=== PATIENT | male | born 1980 | race Caucasian/White ===

== ENCOUNTER 2020-01-19 10:32 | Emergency (ER) | payer SELFPAY ==
[2020-01-19 10:44] VITALS: BP 154/97; PULSE 95; RESP 16; TEMP 36.3; O2SAT 100
--- NOTE | 2020-01-19 11:02 | ED.DENTAL ---
HPI - Dental/Oral General Chief complaint: Dental/Oral Stated complaint: jaw pain Time Seen by Provider: 01/19/20 11:02 Source: patient Mode of arrival: ambulatory Limitations: no limitations History of Present Illness HPI Narrative: Dami Levine is a 39 yo malw qith a hx of epilepsy who omes to express are with dental pain. Patient does not have a diet dentist and is been having problems with his last molar on the right for weeks but starting Friday it started this swell and become very painful, states the pain is about ureterogram hard for him to eat or to bite down. Is also epileptic and has not had his Dilantin XR due to lack of prescription and also expense. He has been trying to taper his medications coverage until he can get a new prescription Related Data Home Medications Medication Instructions Recorded Confirmed Dilantin 01/19/20 Allergies Allergy/AdvReac Type Severity Reaction Status Date / Time Penicillins Allergy Unknown Hives Verified 01/19/20 10:49 Bumble Bee Allergy Unknown Unknown Uncoded 01/19/20 10:49 Review of Systems Review of Systems: Narrative: CONSTITUTIONAL: Denies fever, chills, sweats. EYES: Denies visual changes, redness, discharge. ENT: Denies rhinorrhea, congestion, sore throat, otalgia. Tooth 16 and 32 redness of gum swelling of right cheek CARDIOVASCULAR: Denies chest pain, palpitations, edema. RESPIRATORY: Denies dyspnea, wheezing, cough GASTROINTESTINAL: Denies abdominal pain, nausea, vomiting, diarrhea. GENITOURINARY: Denies dysuria, hematuria, abnormal discharge SKIN: Denies rash or itching. NEUROLOGIC: Denies numbness, or focal weakness. PSYCHIATRIC: Denies anxiety or depression. Needs refill on his Dilaudid prescription COUNTS INCLUDE 234 BEDS AT THE [facility] Past Medical History Medical History Epilepsy Family History Family History Sibling Patient's sister is in good health Father Family history of chronic obstructive pulmonary disease Patient's father is Other Hypertension Social History Social History Smoking status: Heavy tobacco smoker Alcohol intake: current Gender identity (if verbalized by the patient): Male Comments At time of signature, I agree with nursing past medical, surgical, social and family history. There is no relevant family history pertinent to the presenting complaint. Patient's blood pressure is elevated today probably due to pain but needs to follow-up with primary care physician Exam Narrative: Exam Narrative: GENERAL: This is a well-nourished, well-developed patient, in mild distress. HEAD: normocephalic, atraumatic. EYES: PERRL. Sclera clear/white. Vision is grossly intact. EARS: External ears normal, auditory canals clear and without drainage, TMs normal without perforation. Hearing grossly intact. NOSE: External nose normal without nasal discharge, nares without redness, no rhinorrhea. THROAT: Mucous membranes moist, posterior pharynx mild erythema of the gums around tooth 16 and 32 is swollen and tender right cheek is puffy; dentition fair NECK: Neck supple, non-tender CARDIOVASCULAR: Regular rate and rhythm without murmurs, gallops, or rubs. RESPIRATORY: Clear to auscultation. Breath sounds equal bilaterally. No wheezes, rales, or rhonchi. GASTROINTESTINAL: Abdomen soft, non-tender, SKIN: warm, intact with no suspicious lesions or rash, good texture and turgor. NEURO: awake, alert, and oriented to person, place and time. There were no obvious focal neurologic abnormalities. Steady gait. Needs seizure medication refill EXTREMITIES: Normal range of motion. BACK: Nontender without deformity Course Course Emergency Course: Started on ibuprofen penicillin and [place] for tooth pain Refill of Dilantin XR patient takes 750 mg twice daily Needs to follow-up with both the dentist and a primary care physician for further care
== END 2020-01-19 11:25 | disposition home or self-care (01) ==
PROVIDERS: Emergency Provider Nurse Practitioner
DX: K04.7 Periapical abscess without sinus (principal); G40.909 Epilepsy, unspecified, not intractable, without status epilepticus; F17.200 Nicotine dependence, unspecified, uncomplicated
CPT/HCPCS: 99213; G0463

== ENCOUNTER 2020-05-18 09:19 | Emergency (ER) | payer MEDICAID, SELFPAY ==
--- NOTE | ~2020-05-18 | XR_ITS ---
EXAMINATION: XR chest 1V portable EXAM DATE: 05/18/2020 10:31 INDICATION: Shortness of breath and bodyaches. TECHNIQUE: Portable AP frontal chest x-ray was obtained. Comparison is made to prior examination from 02/28/2017. FINDINGS: The lungs are clear. There are no pleural effusions. Cardiac silhouette is prominent but magnified on this AP technique. There is no pneumothorax suspected. The bones and soft tissues are unremarkable. IMPRESSION: No acute cardiopulmonary findings. Reviewed, dictated and finalized at location A. ERY MACHINE SETTER
--- NOTE | ~2020-05-18 | CT_ITS ---
EXAMINATION: CT abdomen pelvis w con DATE: 05/18/2020 10:57 INDICATION: Nausea and vomiting. TECHNIQUE: Computed tomography (CT) of the abdomen and pelvis was performed with 100 mL Omnipaque 350 intravenous contrast. Automated exposure control and iterative reconstruction technique were employe d. The dose-length product was 501.98 mGy-cm. COMPARISON: None. FINDINGS: The visualized portions of the lung bases demonstrate mild dependent atelectasis. No pleura l effusion. The heart size is normal. No pericardial effusion. There are cysts in the liver measuring up to 6 mm. The gallbladder, spleen, pancreas, adrenal glands, and kidneys are normal. There are no dilated loops of bowel. The appendix is normal. There are no pathologically enlarged lymph nodes. The re is no free intraperitoneal fluid. There is mild lumbar spondylosis. IMPRESSION: 1. No etiology for the patient's symptoms. Reviewed, dictated and finalized at location A. E TECHNICIAN
[2020-05-18 09:20] VITALS: BP 140/110; PULSE 106; RESP 16; TEMP 36.6; O2SAT 98
[2020-05-18 09:28] VITALS: BP 140/110; PULSE 105; RESP 14; O2SAT 98
[2020-05-18 09:31] VITALS: BP 142/106; PULSE 103; RESP 18; O2SAT 97
--- NOTE | 2020-05-18 09:42 | ECG_ITS ---
Measurements Intervals [place] Rate: 82 P: 66 NE: 153 QRS: 75 QRSD: 103 T: 57 QT: 366 QTc: 430 Interpretive Statements SINUS RHYTHM POSSIBLE LEFT ATRIAL ENLARGEMENT INCOMPLETE RIGHT BUNDLE BRANCH BLOCK BORDERLINE ECG Electronically Signed On 05-18-2020 11:44:14 RETAIL LEASING AGENT by Mark Glasgow D.O.
--- NOTE | 2020-05-18 09:46 | ED.NAVMDI ---
HPI - Nausea/Vomiting/Diarrhea General Chief complaint: Upper Respiratory Infection Stated complaint: vomiting, diarrhea Time Seen by Provider: 05/18/20 09:24 Source: patient Mode of arrival: wheelchair Limitations: no limitations History of Present Illness HPI Narrative: This is a 39 year old male that presents to the ER for flu like symptoms x 3 days. Reports cough, sore throat, nausea, vomiting, and diarrhea. Reports chills and myalgias. Reports loss of sense of taste and smell. Reports slight shortness of breath. Denies chest pain. Related Data Allergies Allergy/AdvReac Type Severity Reaction Status Date / Time Penicillins Allergy Unknown Hives Verified 05/18/20 09:40 Bumble Bee Allergy Unknown Unknown Uncoded 01/19/20 10:49 Review of Systems Review of Systems: Narrative: CONSTITUTIONAL: Reports chills. Denies fever ENT: Reports congestion, sore throat CARDIOVASCULAR: Denies chest pain, or edema. RESPIRATORY: Reports cough and dyspnea. GASTROINTESTINAL: Reports abdominal pain, nausea, vomiting, and diarrhea. GENITOURINARY: Denies dysuria or hematuria. MUSCULOSKELETAL: Reports myalgia. All systems reviewed & are unremarkable except as noted in HPI and below PMFSH Past Medical History Medical History (Updated 05/18/20 @ 12:36 by Lori Grant PA-C) Epilepsy Family History Family History Sibling Patient's sister is in good health Father Family history of chronic obstructive pulmonary disease Patient's father is Other Hypertension Social History Social History Smoking status: Heavy tobacco smoker Alcohol intake: current Gender identity (if verbalized by the patient): Male Exam Narrative: Exam Narrative: GENERAL: Well-appearing, well-nourished, and in no acute distress. HEAD: Normocephalic, atraumatic. EYES: EOMI. ENT: Nares clear, no rhinorrhea or epistaxis. Mucous membranes moist. Oropharynx without tonsillar hypertrophy exudate or other lesions. Bilateral TMs pearly capone non-bulging NECK: Supple. No adenopathy or masses. CHEST: Clear to auscultation. No respiratory distress. No wheezes rales or rhonchi HEART: Regular rate and rhythm. No murmur heard. Normal peripheral pulses. ABDOMEN: Soft, nondistended, normal active bowel sounds. Mild tenderness to palpation in the epigastrium, without guarding EXTREMITIES: Normal range of motion. No edema. SKIN: Warm, dry, no rash. NEURO: No focal deficits. Alert and oriented x3. PSYCH: Normal mood and affect Course Vital Signs Vital signs: Vital Signs Temperature 98 F 05/18/20 09:20 Pulse Rate 106 H 05/18/20 09:20 Respiratory Rate 16 05/18/20 09:20 Blood Pressure 140/110 H 05/18/20 09:20 Pulse Oximetry 98 05/18/20 09:20 Temperature 98 F 05/18/20 09:20 Pulse Rate 78 05/18/20 10:32 Respiratory Rate 17 05/18/20 10:32 Blood Pressure 135/103 H 05/18/20 10:32 Pulse Oximetry 97 05/18/20 10:32 MDM - Nausea/Vomiting/Diarrhea MDM Narrative Medical decision making narrative: Patient presents to the emergency department for flulike symptoms. He is afebrile and nontoxic-appearing. Mildly tachycardic upon arrival, this normalized with IV fluid administration. CBC with leukocytosis to 14. Also shows hemoconcentration. Metabolic panel without concerning findings. Lipase is normal. Lactic acid and CRP are normal. UA without evidence of infection. Chest x-ray without acute cardiopulmonary findings. Patient also reports abdominal pain with leukocytosis CT scan of the abdomen/pelvis was obtained which was without acute findings. Influenza negative. Covid swab was sent. Patient was updated on case findings. He is stable and felt appropriate for further outpatient evaluation. He was given warnings to return to the ER Patient also reported seizure disorder since childhood for which he has been off medications for years. Was instructed on the importance of foll
[2020-05-18] MEDS: ONDANSETRON INJ 4 MG/2 ML VIAL IV PUSH (09:57)
[2020-05-18] MEDS: SODIUM CHLORIDE 0.9% IV 1,000 ML 999 ML IV CONT ×2 (09:57→11:44)
[2020-05-18] MEDS: FAMOTIDINE 20 MG/2 ML VIAL IV PUSH (09:57)
[2020-05-18 10:18] LABS: Basophils Absolute Auto 0.1 K/mm3 (0.0-0.1); Basophils Percent Auto 0.4 % (0.2-1.2); Eosinophils Absolute Auto 0.5 K/mm3 (0-0.3); Eosinophils Percent Auto 3.6 % (0-4.4); Hematocrit 55.2 % (42.0-52.0); Hemoglobin 18.9 g/dL (14.0-18.0); Immature Granulocyte Absolute 0.03 K/mm3 (0.00-0.031); Immature Granulocyte Percent A 0.2 % (0-0.5); Lymphocytes Absolute Auto 3.39 K/mm3 (0.9-3.2); Lymphocytes Percent Auto 24.2 % (18.3-44.2); Mean Corpuscular HGB Conc 34.2 g/dl (32-36); Mean Corpuscular Hemoglobin 30.5 pg (26-34); Mean Corpuscular Volume 89.2 fl (80-100); Mean Platelet Volume 9.8 fl (7.4-10.4); Monocytes Absolute Auto 1.3 K/mm3 (0.1-0.6); Monocytes Percent Auto 9.3 % (2.6-8.5); Neutrophils Absolute Auto 8.7 K/mm3 (1.3-6.7); Neutrophils Percent Auto 62.3 % (45.5-73.1); Platelet Count Result 289 k/mm3 (150-375); Red Blood Count 6.19 M/mm3 (4.6-6.20); Red Cell Distribution Width 12.7 % (11.5-14.5)
[2020-05-18 10:32] VITALS: BP 135/103; PULSE 78; RESP 17; O2SAT 97
[2020-05-18 10:32] LABS: Lactic Acid Reflex 1.5 mmol/L (0.7-2.1)
[2020-05-18 10:34] LABS: Alanine Aminotransferase 36 U/L (4-50); Albumin Level 4.5 g/dL (3.5-5.1); Alkaline Phosphatase 77 U/L (38-126); Anion Gap 7 mmol/L (8-16); Aspartate Amino Transferase 26 U/L (17-59); Bilirubin,Total 0.7 mg/dL (0.2-1.3); Blood Urea Nitrogen 12 mg/dL (9-20); CRP 0.5 mg/dL (<1.0); Calcium 9.5 mg/dL (8.4-10.2); Carbon Dioxide 26 mmol/L (22-30); Chloride 103 mmol/L (98-107); Estimated CRCL calculation 103 ml/min; Estimated Glomerular Filt Rate > 60; Glucose 128 mg/dL (75-110); Lactate Dehydrogenase 361 U/L (313-618); Lipase 76 U/L (23-300); Potassium 3.7 mmol/L (3.4-5.0); Sodium 136 mmol/L (137-145)
[2020-05-18 11:30] VITALS: BP 142/91; PULSE 75; RESP 16; O2SAT 98
[2020-05-18 11:32] LABS: Add Urine Microscopic? NO; Appearance Urine Clear (Clear); Bilirubin Urine Negative (Negative); Blood Urine Negative (Negative); Color Urine Yellow (Yellow); Glucose Urine UA Negative (Negative); Ketones Urine Negative (Negative); Leukocyte Esterase Ur Negative LEU/UL (Negative); Nitrate Urine Negative (Negative); Protein Urine Negative (Negative); Specific Grav Ur 1.049 (1.001-1.035); Urobilinogen Urine Negative mg/dL (<2.0)
[2020-05-18 12:56] VITALS: BP 127/94; PULSE 91; RESP 16
[2020-05-18 16:56] LABS: SARS-CoV-2 RNA PCR Negative
== END 2020-05-18 12:56 | disposition home or self-care (01) ==
PROVIDERS: Physician Assistant; Emergency Provider Emergency Medicine
DX: R05 Cough (principal); R68.83 Chills (without fever); R43.8 Other disturbances of smell and taste; J02.9 Acute pharyngitis, unspecified; Z20.822 Contact with and (suspected) exposure to COVID-19; G40.909 Epilepsy, unspecified, not intractable, without status epilepticus; F17.210 Nicotine dependence, cigarettes, uncomplicated; I45.10 Unspecified right bundle-branch block; R94.31 Abnormal electrocardiogram [ECG] [EKG]
CPT/HCPCS: 36415; 71045; 74177; 80053; 81003; 82728; 83605; 83615; 83690; 85025; 86140; 87804; 93005; 96361; 96374; 96375; 99284; C9803; J0131; J2405; J7030; Q9967; U0003; U0005

== ENCOUNTER 2020-11-11 20:39 | Emergency (ER) | payer BC, SELFPAY ==
[2020-11-11 20:41] VITALS: BP 160/87; PULSE 87; RESP 16; O2SAT 99
--- NOTE | 2020-11-11 20:48 | ED.BACK ---
HPI - Back Pain/Injury General Chief Complaint: Back Pain/Injury Stated Complaint: lower back injury Time Seen by Provider: 11/11/20 20:47 Source: patient Mode of arrival: ambulatory Limitations: no limitations History of Present Illness HPI Narrative: Patient is a 40 year old male who presents reporting lower back pain. Patient reports pain occurred when lifting a saw 2 days ago. He reports increased pain with movement and ambulation. Reports a history of back pain. He denies other injuries. Denies loss of bowel or bladder control. Denies numbness or tingling in extremities. Patient reports taking ibuprofen earlier this am without relief. Related Data Allergies Allergy/AdvReac Type Severity Reaction Status Date / Time Penicillins Allergy Unknown Hives Verified 11/11/20 21:12 Bumble Bee Allergy Unknown Unknown Uncoded 11/11/20 21:12 Review of Systems Review of Systems: Narrative: CONSTITUTIONAL: Denies fever, chills, or sweats. EYES: Denies visual changes, redness, or discharge. ENT: Denies rhinorrhea, congestion, sore throat, or otalgia. CARDIOVASCULAR: Denies chest pain, palpitations, or edema. RESPIRATORY: Denies cough or dyspnea. GASTROINTESTINAL: Denies abdominal pain, nausea, vomiting, or diarrhea. GENITOURINARY: Denies dysuria or hematuria. SKIN: Denies rash or itching. MUSCULOSKELETAL: Reports lumbar back pain that radiates to left leg NEUROLOGIC: Denies headache, numbness, dizziness, or weakness. PSYCHIATRIC: Denies anxiety or depression. [facility] Past Medical History Medical History Back pain Epilepsy Headache Family History Family History Sibling Patient's sister is in good health Father Family history of chronic obstructive pulmonary disease Patient's father is Other Hypertension Social History Social History (Updated 11/11/20 @ 20:49 by MARICEL Adams) Smoking status: Heavy tobacco smoker Alcohol intake: current Substance use: current Substance use type: marijuana Gender identity (if verbalized by the patient): Male Comments At the time of signature, I have reviewed and agree with nursing past medical, surgical, social, and family history unless otherwise noted. Please see nursing chart for further information. There is no relevant family history pertinent to the presenting complaint. Exam Narrative: Exam Narrative: GENERAL: Appears uncomfortable HEAD: Normocephalic, atraumatic. EYES: EOMI. No redness or drainage. Conjunctiva are normal. ENT: Mucous membranes pink and moist. NECK: AROM. Supple. No lymphadenopathy. CHEST: No respiratory distress. HEART: Regular rate and rhythm. MUSCULOSKELETAL: Left paraspinous tenderness with palpation EXTREMITIES: Normal range of motion. No edema. SKIN: Warm, dry, no rash. NEURO: No focal deficits. Alert and oriented x3. Gait steady. PSYCH: Normal affect. No signs of depression or anxiety. Course Vital Signs Vital signs: Vital Signs Pulse Rate 87 11/11/20 20:41 Respiratory Rate 16 11/11/20 20:41 Blood Pressure 160/87 H 11/11/20 20:41 Pulse Oximetry 99 11/11/20 20:41 Pulse Rate 87 11/11/20 20:41 Respiratory Rate 16 11/11/20 20:41 Blood Pressure 160/87 H 11/11/20 20:41 Pulse Oximetry 99 11/11/20 20:41 Reviewed. Patient has been instructed to follow-up with his PCP regarding his blood pressure. MDM - Back Pain/Injury MDM Narrative Medical decision making narrative: Patient has palpable. Tenderness. Patient treated for pain in ED. Discussed use of Tylenol or ibuprofen as well as muscle relaxant for use at home. Discussed follow-up care. Patient agrees with plan of care. Patient stable for discharge home with outpatient follow-up as directed. Differential Diagnosis Differential diagnosis: Likely lumbar radiculopathy, sciatica, strain of lumbar region, thoracic back gavi
[2020-11-11] MEDS: CYCLOBENZAPRINE HCL 10 MG TABLET PO (21:14)
[2020-11-11] MEDS: HYDROcodone/acetaminophen (*CRX) 5-325 MG TABLET 1 TAB PO (21:14)
[2020-11-11] MEDS: KETOROLAC (*BKC) 60 MG/2 ML VIAL IM (21:15)
== END 2020-11-11 22:10 | disposition home or self-care (01) ==
PROVIDERS: Emergency Provider Nurse Practitioner
DX: S39.012A Strain of muscle, fascia and tendon of lower back, initial encounter (principal); G40.909 Epilepsy, unspecified, not intractable, without status epilepticus; F17.200 Nicotine dependence, unspecified, uncomplicated; R03.0 Elevated blood-pressure reading, without diagnosis of hypertension; X50.0XXA Overexertion from strenuous movement or load, initial encounter
CPT/HCPCS: 96372; 99283; A9270; J1885

== ENCOUNTER 2022-10-14 01:02 | Emergency (ER) | payer BC, SELFPAY ==
[2022-10-14 01:05] VITALS: BP 151/101; PULSE 92; RESP 18; TEMP 36.9; O2SAT 100
--- NOTE | 2022-10-14 01:22 | ED.DENTAL ---
HPI - Dental/Oral General Chief complaint: Dental/Oral <Lori Lyman PA-C - Last Filed: 10/14/22 01:44> Stated complaint: tooth abcess? <Lori Lyman PA-C - Last Filed: 10/14/22 01:44> Time Seen by Provider: 10/14/22 01:14 <Lori Lyman PA-C - Last Filed: 10/14/22 01:44> History of Present Illness HPI Narrative: Patient is a 42 year old male here for evaluation of left upper dental pain x3 days. Patient states that he has been taking ibuprofen without relief of his symptoms. He reports increased swelling today to the tooth. He has not been able to see a dentist. He does smoke. <Lori Lyman PA-C - Last Filed: 10/14/22 01:44> Related Data Allergies/adverse reactions: Allergies Allergy/AdvReac Type Severity Reaction Status Date / Time Penicillins Allergy Unknown Hives Verified 10/14/22 01:08 Bumble Bee Allergy Unknown Unknown Uncoded 11/11/20 21:12 <Lori Lyman PA-C - Last Filed: 10/14/22 01:44> Review of Systems Review of Systems: Gen: Denies fevers or chills Eyes: Denies eye pain or visual change ENT: Reports dental pain Respiratory: Denies shortness of breath or cough CV: Denies chest pain or palpitations GI: Denies abdominal pain nausea, emesis or diarrhea denies burning, urgency, frequency or hematuria Musculoskeletal: Denies back pain or muscle pain Neuro: Denies numbness, tingling, weakness or focal weakness Skin: Denies rash Except as documented, all other systems reviewed and negative <Lori Lyman PA-C - Last Filed: 10/14/22 01:44> PMFSH Past Medical History Medical History: Medical History Back pain Epilepsy Headache <Lori Lyman PA-C - Last Filed: 10/14/22 01:44> Family History Family History: Family History Sibling Patient's sister is in good health Father Family history of chronic obstructive pulmonary disease Patient's father is Other Hypertension <Lori Lyman PA-C - Last Filed: 10/14/22 01:44> Social History Social History: Social History (Updated 11/11/20 @ 20:49 by Laura Daniels, PRINCIPAL STRATEGIST) Smoking status: Heavy tobacco smoker Alcohol intake: current Substance use: current Substance use type: marijuana Gender identity (if verbalized by the patient): Male <Lori Lyman PA-C - Last Filed: 10/14/22 01:44> Exam Narrative: Gen: Alert, oriented, no acute distress Eyes: EOMI, no icterus ENT: Small amount of swelling to the left maxilla, there is a small periapical abscess to the left upper molar that is fluctuant and TTP, poor dentition throughout Pulm: Respirations even and unlabored, symmetric thorax expansion, no audible stridor or visible cyanosis CV: Regular rate per telemetry GI: No distension, no voluntary/involuntary guarding Neuro: AOx4, moves all extremities without apparent difficulty or weakness, follows commands Skin: No jaundice, no visible bruising, rashes, lesions or wounds on exposed skin Psych: Normal mood/affect, insight/judgement good, adequate fund of knowledge, recent/remote memory intact <Lori Lyman PA-C - Last Filed: 10/14/22 01:44> Course [employer]ICK/PA Physician Supervision This is a was performed by both a physician and an APC. I performed all aspects of the MDM as documented w/ the following additions: 42-year-old male presenting with dental pain. Discharged with pain medication.All questions answered. Patient in agreement w/ disposition. <Gato Veronica MD - Last Filed: 10/15/22 06:34> Vital Signs Vital signs: Vital Signs Temperature 98.5 F 10/14/22 01:05 Pulse Rate 92 10/14/22 01:05 Respiratory Rate 18 10/14/22 01:05 Blood Pressure 151/101 H 10/14/22 01:05 Pulse Oximetry 100 10/14/22 01:05 Oxygen Delivery Room Air
[2022-10-14] MEDS: LIDOCAINE HCL 2% JELLY 5 ML TUBE 1 APPLIC MUCOUS MEM (01:33)
[2022-10-14] MEDS: CLINDAMYCIN HCL 150 MG CAP 600 MG PO (01:33)
[2022-10-14] MEDS: ACETAMINOPHEN 325 MG TABLET 650 MG PO (01:33)
== END 2022-10-14 01:49 | disposition home or self-care (01) ==
PROVIDERS: Emergency Provider Physician Assistant
DX: K08.89 Other specified disorders of teeth and supporting structures (principal); F17.210 Nicotine dependence, cigarettes, uncomplicated
CPT/HCPCS: 99283; A9270

== ENCOUNTER 2023-07-03 22:30 | Emergency (ER) | payer BC, SELFPAY ==
[2023-07-03 22:32] VITALS: BP 154/103; PULSE 108; RESP 15; TEMP 36.9; O2SAT 99
--- NOTE | 2023-07-03 23:42 | PC.NURSE ---
Pt swiftly ambulated out of the ED and never returned.
== END 2023-07-03 23:47 | disposition left against medical advice (07) ==
DX: K08.89 Other specified disorders of teeth and supporting structures (principal)
CPT/HCPCS: 99199

== ENCOUNTER 2023-07-04 12:55 | Emergency (ER) | payer BC, SELFPAY ==
[2023-07-04 13:12] VITALS: BP 175/97; PULSE 89; RESP 16; TEMP 36.9; O2SAT 98
--- NOTE | 2023-07-04 13:17 | ED.DENTAL ---
HPI - Dental/Oral General Chief complaint: Dental/Oral Stated complaint: Dental Pain Time Seen by Provider: 07/04/23 13:15 Source: patient Mode of arrival: ambulatory Limitations: no limitations History of Present Illness HPI Narrative: Dami is a 42-year-old male patient presenting to the clinic today with complaints of right upper dental pain x2 days. He reports that he has a broken to the back there that has been bothersome and he noticed some upper swelling over the maxilla. Related Data Allergies Allergy/AdvReac Type Severity Reaction Status Date / Time Penicillins Allergy Unknown Hives Verified 07/04/23 13:14 Bumble Bee Allergy Unknown Unknown Uncoded 07/04/23 13:14 Review of Systems Review of Systems: Pertinent positives per HPI. Patient denies any fever, chills, rash, headache, visual changes, dizziness, cough, shortness of breath, chest pain, palpitations, nausea, vomiting, diarrhea, constipation, abdominal pain, or any urinary issues. PMFSH Past Medical History Medical History Back pain Epilepsy Headache Family History Family History Sibling Patient's sister is in good health Father Family history of chronic obstructive pulmonary disease Patient's father is Other Hypertension Social History Social History Smoking status: Heavy tobacco smoker Alcohol intake: current Substance use: current Substance use type: marijuana Gender identity (if verbalized by the patient): Male Comments At the time of my signature, I reviewed and agree with the nursing past medical, surgical, social, and family history. There is no relevant family history pertinent to the patient complaint. Exam Narrative: General: Well-developed, well nourished, in no apparent distress Head: Normocephalic, atraumatic Eyes: Pupils equally round and reactive to light bilaterally, EOM intact, sclera and conjunctive clear, no discharge, lids normal Ears: TMs intact and clear, ear canals clear, no drainage, grossly hearing normal. Nose: Nares patent, no discharge, no inflammation, no sinus tenderness. Mouth: Oral pharynx without lesions or masses, poor dentition, MMM. Broken decayed right upper posterior molar with redness and swelling to the gum Neck: Supple, trachea midline, no enlargement of anterior or posterior cervical nodes, no thyroid masses or goiter palpable. Cardio: Regular rate and rhythm, s1 and s2 normal, no murmur appreciated. Resp: Clear to auscultation bilaterally, no rhonchi, rales, wheezing or rubs Course Course Emergency Course: Portions of this record may have been created with voice recognition software. Level of Care: Express Care Visit Vital Signs Vital signs: Vital Signs Temperature 36.9 C 07/04/23 13:12 Pulse Rate 89 07/04/23 13:12 Respiratory Rate 16 07/04/23 13:12 Blood Pressure 175/97 H 07/04/23 13:12 Pulse Oximetry 98 07/04/23 13:12 Oxygen Delivery Room Air 07/04/23 13:12 Temperature 36.9 C 07/04/23 13:12 Pulse Rate 89 07/04/23 13:12 Respiratory Rate 16 07/04/23 13:12 Blood Pressure 175/97 H 07/04/23 13:12 Pulse Oximetry 98 07/04/23 13:12 Oxygen Delivery Room Air 07/04/23 13:12 Vital signs reviewed Discharge Plan Discharge Clinical Impression: Toothache, Dental infection Patient Disposition: Home, Self-Care Condition: Stable Instructions: Antibiotic Form, Toothache (ED) Additional Instructions: Increase fluids and stay well hydrated May take Tylenol/Motrin as needed for pain Continue current medications Take clindamycin as prescribed May apply Orajel to the affected area to help alleviate pain Follow-up with your dentist as soon as possible Prescriptions: New clindamycin HCl 300 mg capsule 300 mg
== END 2023-07-04 13:25 | disposition home or self-care (01) ==
PROVIDERS: Emergency Provider Nurse Practitioner Family
DX: K04.7 Periapical abscess without sinus (principal); F17.200 Nicotine dependence, unspecified, uncomplicated; F12.90 Cannabis use, unspecified, uncomplicated
CPT/HCPCS: 99213; G0463

== ENCOUNTER 2024-11-03 17:20 | Emergency (ER) | payer BC, SELFPAY ==
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
[2024-11-03 17:27] VITALS: BP 153/100; PULSE 85; RESP 20; TEMP 36.6; O2SAT 100
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
--- NOTE | 2024-11-04 13:49 | ECG_ITS ---
Test Date: 2024-11-03 17:54:44 Measurements Intervals [place] Rate: 79 P: 63 NV: 163 QRS: 58 QRSD: 101 T: 43 QT: 384 QTc: 441 Interpretive Statements SINUS RHYTHM No previous ECG available for comparison Electronically Signed On 11-04-2024 14:39:08 CDT by Dakota Lopez M.D.
== END 2024-11-03 18:12 | disposition home or self-care (01) ==
PROVIDERS: Emergency Provider Registered Nurse
DX: S22.32XA Fracture of one rib, left side, initial encounter for closed fracture (principal); V58.5XXA Driver of pick-up truck or van injured in noncollision transport accident in traffic accident, initial encounter; G40.909 Epilepsy, unspecified, not intractable, without status epilepticus; F17.200 Nicotine dependence, unspecified, uncomplicated; F12.90 Cannabis use, unspecified, uncomplicated
CPT/HCPCS: 71101; 93005; 99213; G0463